=== PATIENT | female | born 1995 | race Caucasian/White ===

== ENCOUNTER 2017-02-01 16:14 | Emergency (ER) | payer OTHER ==
[~2017-02-01] VITALS: Wt 55.5 kg
[~2017-02-01 16:14] MED LIST: BEN25 PO; HC1C30 TOP; HYDR-842 PO; IBUP400T22 PO; OSLT75C PO; PRED20TA PO
[2017-02-01] MEDS ORDERED: IBUPROFEN 600 MG TAB PO ONE (17:30)
--- NOTE | 2017-02-01 17:50 | ERD ---
ER Documentation Chief Complaint Chief Complaint cough w cwp from coughing HPI 21-year-old female presents with anterior chest pain for the past 2 weeks associated with coughing. The patient describes pain as achy, localized, worse when she coughs or takes a deep breath in or out. She has not had any fevers or chills, shortness breath, hemoptysis. She denies taking exogenous steroids, denies leg pain or swelling, history of DVT or PE. ROS All systems reviewed and are negative except as per history of present illness. Medications Home Meds Active Scripts Mometasone Furoate* (Nasonex*) 50 Mcg/[place] - 17 Gm [place].pump, 1 SPRAY NASAL BID, #1 BOTTLE IN EACH NOSTRIL Prov:HIGINIO SOTOMAYOR PA-C 02/01/17 Cetirizine Hcl* (Cetirizine Hcl*) 10 Mg Tablet, 10 MG PO DAILY, #30 TAB Prov:HIGINIO SOTOMAYOR PA-C 02/01/17 Ibuprofen* (Motrin*) 600 Mg Tab, 600 MG PO Q6, #30 TAB Prov:HIGINIO SOTOMAYOR PA-C 02/01/17 Hydrocortisone* Topical (Hydrocortisone* Topical) 1%-28.35 Gm Cream..g., 1 APPLIC TOP Q6 Y for ITCHING, #1 TUB Prov:ANNABELLE HAMILTON PA-C 11/30/15 Diphenhydramine Hcl* (Benadryl*) 25 Mg Cap, 25 MG PO Q6, #30 CAP Prov:ANNABELLE HAMILTON PA-C 11/30/15 Ibuprofen* (Motrin*) 400 Mg Tab, 400 MG PO Q6, #30 TAB Prov:ZOYA HARRIS PA-C 08/20/15 Ibuprofen* (Motrin*) 400 Mg Tab, 400 MG PO Q6, #14 TAB Prov:HIGINIO SOTOMAYOR PA-C 05/06/15 Oseltamivir Phosphate* (Tamiflu*) 75 Mg Capsule, 75 MG PO BID for 5 Days, CAP Prov:HIGINIO SOTOMAYOR PA-C 05/06/15 Prednisone* (Prednisone*) 20 Mg Tab, 40 MG PO DAILY for 5 Days, TAB Prov:HIGINIO SOTOMAYOR PA-C 12/27/14 Hydroxyzine Hcl* (Atarax*) 25 Mg Tab, 25 MG PO Q6H Y for ITCHING, #14 TAB Prov:HIGINIO SOTOMAYOR PA-C 12/27/14 Reported Medications [None] No Conflict Check 02/26/10 Allergies Allergies: Coded Allergies: No Known Drug Allergies (Verified Allergy, Mild, 08/20/15) PMhx/Soc History of Surgery: No Anesthesia Reaction: No Hx Neurological Disorder: No Hx Respiratory Disorders: No Hx Cardiac Disorders: No Hx Psychiatric Problems: No Hx Miscellaneous Medical Probl: Yes (LUPUS) Hx Alcohol Use: No Hx Substance Use: No Hx Tobacco Use: No Physical Exam Vitals Vital Signs Date Time Temp Pulse Resp B/P Pulse Ox O2 Delivery O2 Flow Rate FiO2 02/01/17 16:31 98.1 80 20 105/56 97 Physical Exam General: Well-developed, well-nourished. The patient appears in no acute distress. HEENT: Head is normocephalic, atraumatic. No scleral icterus. Neck: Supple. Nontender. Lungs: Clear to auscultation. Normal air movement. Chest wall pain is reproducible with palpation over the proximal aspect of the sternum. Heart: Regular rate and rhythm. S1 and S2 are normal. No murmurs, gallops, or rubs. Abdomen: Nondistended. Extremities: No clubbing or cyanosis. Moving extremities x 4. No weakness. Neurologic: Alert and oriented 3. No focal deficits. Normal speech and gait. Skin: Normal turgor. No rash or lesions. Results 24 hrs Current Medications Medications (Trade) Dose Ordered Sig/Basilia Route PRN Reason Start Time Stop Time Status Last Admin Dose Admin Ibuprofen (Motrin) 600 mg ONCE ONCE PO 02/01/17 17:30 02/01/17 17:31 DC 12-lead EKG(interpreted by supervising physician): Dr. Noel Rate/Rhythm: Normal Sinus Rhythm, rate of 62 QRS, ST, T-waves: No changes consistent w/ acute ischemia, no intervals, no dysrhythmias, no ectopy Impression: No evidence of ischemia or arrhythmia DIAGNOSTIC IMAGING REPORT Patient: AKIL SHULTZ : 1995 Age: 21 Sex: F MR #: [id number] DOS: 02/01/17 1720 Ordering MD: HIGINIO SOTOMAYOR PA-C Location: [facility] Room/Bed: PROCEDURE: XR Chest. CLINICAL INDICATION: Chest pain, cough x 2 weeks TECHNIQUE: Single frontal view of the chest was obtained COMPARISON: Chest radiograph dated August 20, 2015. FINDINGS: The heart and mediastinum are within normal limits. The lungs are clear. There is no pleural effusion or pneumothorax. The osseous structures are unremarkable. IMPRESSION: 1. No acute cardiopulmonary disease. RPTAT:AAJJ Physician Veronique Date Time Electronically viewed and signed by Guy Noland Physician on 02/01/2017 18:30 QL/ CC: IHGINIO SOTOMAYOR PA-C Procedures/[facility] 21-year-old female presents with chest pain, cough, patient's chest x-ray, EKG are normal. She is PERC negative, I doubt acute pulmonary embolus. The pain is reproducible on examination, when I palpate over the sternum she reports pain that is most consistent with costochondritis. There is no evidence of pneumothorax, hemopneumothorax, widened mediastinum on the chest x-ray. EKG also shows normal sinus rhythm, the patient is stable for outpatient management to continue ibuprofen. Departure Diagnosis: Primary Impression: Cough Additional Impression: Chest wall pain HIGINIO SOTOMAYOR PA-C Feb 01, 2017 17:50
--- NOTE | 2017-02-01 18:31 | RADRPT ---
PROCEDURE: XR Chest. CLINICAL INDICATION: Chest pain, cough x 2 weeks TECHNIQUE: Single frontal view of the chest was obtained COMPARISON: Chest radiograph dated August 20, 2015. FINDINGS: The heart and mediastinum are within normal limits. The lungs are clear. There is no pleural effusion or pneumothorax. The osseous structures are unremarkable. IMPRESSION: 1. No acute cardiopulmonary disease. RPTAT:AAJJ Guy Noland Physician Date Time Electronically viewed and signed by Guy Noland Physician on 02/01/2017 18:30 QL/
[2017-02-01] MEDS ORDERED: NASO17 NASAL (18:59)
[2017-02-01] MEDS ORDERED: CETI-240 PO (18:59)
[2017-02-01] MEDS ORDERED: IBUP-1542 PO (18:59)
== END 2017-02-01 19:39 | disposition home or self-care (01) ==
LOC: FTE 16:14
DX: R05 Cough (principal); R07.89 Other chest pain
CPT/HCPCS: 71010; 93005; Z7502; Z7610

== ENCOUNTER 2017-02-16 13:20 | Emergency (ER) | payer OTHER ==
[~2017-02-16] VITALS: Ht 154.9 cm; Wt 56.1 kg
[~2017-02-16 13:20] MED LIST changes: +CETI-240 PO; +IBUP-1542 PO; +NASO17 NASAL
[2017-02-16 13:27] VITALS: Ht 154.9 cm; Wt 56.1 kg
[2017-02-16] MEDS ORDERED: morphine 4 MG/ML VIAL IV STA (15:52)
[2017-02-16] MEDS ORDERED: ONDANSETRON 4 MG INJ IV STA (15:52)
--- NOTE | 2017-02-16 15:58 | ERD ---
ER Documentation Chief Complaint Chief Complaint AP AND TOOK HER BP AND ITVWAS LOW AT HER JOB HPI This a 21-year-old female who presents the emergency department today complaining of diffuse abdominal pain that started 11 this morning. States she has not taken a medication for the pain. States she has a history of lupus and takes meloxicam and prednisone. States that she got her menstrual cycle today. States that this feels different than the normal cramps that she has. States she has had some nausea is intermittent. Denies any dysuria, fevers or chills. ROS All systems reviewed and are negative except as per history of present illness. Medications Home Meds Active Scripts Tramadol HCl (Tramadol HCl) 50 Mg Tablet, 50 MG PO Q4 Y for PAIN, #20 TAB Prov:ANNABELLE HAMILTON PA-C 02/16/17 Ondansetron Hcl* (Zofran*) 4 Mg Tablet, 4 MG PO Q6H for NAUSEA AND/OR VOMITING, #30 TAB Prov:ANNABELLE HAMILTON PA-C 02/16/17 Naproxen* (Naprosyn*) 500 Mg Tablet, 500 MG PO BID Y for PAIN AND/OR INFLAMMATION, #30 TAB Prov:ANNABELLE HAMILTON PA-C 02/16/17 Mometasone Furoate* (Nasonex*) 50 Mcg/[place] - 17 Gm [place].pump, 1 SPRAY NASAL BID, #1 BOTTLE IN EACH NOSTRIL Prov:HIGINIO SOTOMAYOR PA-C 02/01/17 Cetirizine Hcl* (Cetirizine Hcl*) 10 Mg Tablet, 10 MG PO DAILY, #30 TAB Prov:HIGINIO SOTOMAYOR PA-C 02/01/17 Ibuprofen* (Motrin*) 600 Mg Tab, 600 MG PO Q6, #30 TAB Prov:HIGINIO SOTOMAYOR PA-C 02/01/17 Hydrocortisone* Topical (Hydrocortisone* Topical) 1%-28.35 Gm Cream..g., 1 APPLIC TOP Q6 Y for ITCHING, #1 TUB Prov:ANNABELLE HAMILTON PA-C 11/30/15 Diphenhydramine Hcl* (Benadryl*) 25 Mg Cap, 25 MG PO Q6, #30 CAP Prov:ANNABELLE HAMILTON PA-C 11/30/15 Ibuprofen* (Motrin*) 400 Mg Tab, 400 MG PO Q6, #30 TAB Prov:ZOYA HARRIS PA-C 08/20/15 Ibuprofen* (Motrin*) 400 Mg Tab, 400 MG PO Q6, #14 TAB Prov:HIGINIO SOTOMAYOR PA-C 05/06/15 Oseltamivir Phosphate* (Tamiflu*) 75 Mg Capsule, 75 MG PO BID for 5 Days, CAP Prov:HIGINIO SOTOMAYOR PA-C 05/06/15 Prednisone* (Prednisone*) 20 Mg Tab, 40 MG PO DAILY for 5 Days, TAB Prov:HIGINIO SOTOMAYOR PA-C 12/27/14 Hydroxyzine Hcl* (Atarax*) 25 Mg Tab, 25 MG PO Q6H Y for ITCHING, #14 TAB Prov:HIGINIO SOTOMAYOR PA-C 12/27/14 Reported Medications [None] No Conflict Check 02/26/10 Allergies Allergies: Coded Allergies: No Known Drug Allergies (Verified Allergy, Mild, 08/20/15) PMhx/Soc History of Surgery: No Anesthesia Reaction: No Hx Neurological Disorder: No Hx Respiratory Disorders: No Hx Cardiac Disorders: No Hx Psychiatric Problems: No Hx Miscellaneous Medical Probl: Yes (LUPUS) Hx Alcohol Use: No Hx Substance Use: No Hx Tobacco Use: No Physical Exam Vitals Vital Signs Date Time Temp Pulse Resp B/P Pulse Ox O2 Delivery O2 Flow Rate FiO2 02/16/17 13:27 98.5 73 18 106/61 99 Physical Exam Const: NAD Head: Atraumatic Eyes: Normal Conjunctiva ENT: Normal External Ears, Nose and Mouth. Neck: Full range of motion..~ No meningismus. Resp: Clear to auscultation bilaterally Cardio: Regular rate and rhythm, no murmurs Abd: Soft, diffuse abdominal tenderness, non distended. Normal bowel sounds Skin: No petechiae or rashes Back: No midline or flank tenderness Ext: No cyanosis, or edema Neur: Awake and alert Psych: Normal Mood and Affect Result Diagram: 02/16/17 1623 02/16/17 1623 Results 24 hrs Laboratory Tests Test 02/16/17 16:23 White Blood Count 15.010^3/ul Red Blood Count 4.2410^6/ul Hemoglobin 13.5g/dl Hematocrit 38.5% Mean Corpuscular Volume 90.8fl Mean Corpuscular Hemoglobin 31.8pg Mean Corpuscular Hemoglobin Concent 35.1g/dl Red Cell Distribution Width 11.8% Platelet Count 84733^3/UL Mean Platelet Volume 9.2fl Neutrophils % 88.0% Lymphocytes % 7.7% Monocytes % 3.6% Eosinophils % 0.1% Basophils % 0.3% Nucleated Red Blood Cells % 0.0/100WBC Neutrophils # 13.210^3/ul Lymphocytes # 1.210^3/ul Monocytes # 0.510^3/ul Eosinophils # 0.010^3/ul Basophils # 0.110^3/ul Nucleated Red Blood Cells # 0.010^3/ul Urine Color YELLOW Urine Clarity CLEAR Urine pH 7.0 Urine Specific [place] 1.021 Urine Ketones TRACEmg/dL Urine Nitrite NEGATIVEmg/dL Urine Bilirubin NEGATIVEmg/dL Urine Urobilinogen 1+mg/dL Urine Leukocyte Esterase NEGATIVELeu/ul Urine Microscopic RBC 60/HPF Urine Microscopic WBC 1/HPF Urine Mucus FEW/HPF Urine Hemoglobin 2+mg/dL Urine Glucose NEGATIVEmg/dL Urine Total Protein 1+mg/dl Sodium Level 142mmol/L Potassium Level 3.6mmol/L Chloride Level 104mmol/L Carbon Dioxide Level 24mmol/L Anion Gap 18 Blood Urea Nitrogen 12mg/dl Creatinine 0.59mg/dl Glucose Level 108mg/dl Calcium Level 9.6mg/dl Total Bilirubin 0.3mg/dl Direct Bilirubin 0.00mg/dl Indirect Bilirubin 0.3mg/dl Aspartate Amino Transf (AST/SGOT) 23IU/L Alanine Aminotransferase (ALT/SGPT) 30IU/L Alkaline Phosphatase 81IU/L Total Protein 8.3g/dl Albumin 4.7g/dl Globulin 3.60g/dl Albumin/Globulin Ratio 1.30 Lipase 58U/L Current Medications Medications (Trade) Dose Ordered Sig/Basilia Route PRN Reason Start Time Stop Time Status Last Admin Dose Admin Morphine Sulfate (morphine) 4 mg ONCE STAT IV 02/16/17 15:52 02/16/17 15:54 DC 02/16/17 16:31 Ondansetron HCl (Zofran Inj) 4 mg ONCE STAT IV 02/16/17 15:52 02/16/17 15:54 DC 02/16/17 16:31 DIAGNOSTIC IMAGING REPORT Patient: AKIL SHULTZ : 1995 Age: 21 Sex: F MR #: [id number] DOS: 02/16/17 1552 Ordering MD: ANNABELLE HAMILTON PA-C Location: [facility] Room/Bed: PROCEDURE: CT Abdomen and Pelvis without contrast. CLINICAL INDICATION: Abdominal pain TECHNIQUE: CT scan of the abdomen and pelvis was performed on a multidetector high-resolution CT scanner without intravenous contrast. Coronal and sagittal reformatted images were obtained from the axial source images. Images were reviewed on a high-resolution PACS workstation. The total exam CTDI equals 5mGy and the total exam DLP equals 230mGy-cm. One or more of the following dose reduction techniques were used: Automated exposure control, Adjustment of the mA and/or kV according to patient size, and/or use of iterative reconstruction technique. DICOM images are available. COMPARISON: None. FINDINGS: Evaluation of the solid organs is limited given the lack of intravenous contrast administration. The lung bases are clear. The liver, pancreas, spleen, and adrenals are grossly unremarkable. No focal pericholecystic inflammatory changes. No hydronephrosis. Punctate 1 mm right lower renal pole hyperdensities (series 3 image 57; se 601 image 44). No bowel obstruction. Normal-caliber appendix. No significant retroperitoneal lymphadenopathy, ascites or evidence of pneumoperitoneum. IMPRESSION: No evidence of bowel obstruction or appendicitis. Punctate 1 mm right lower renal pole hyperdensities is suggestive of renal medullary nephrocalcinosis or tiny renal stones. RPTAT: AA .Guido Cha MD, MD Date Time Electronically viewed and signed by .Guido Cha MD, MD on 02/16/2017 17:20 .T/ CC: ANNABELLE HAMILTON PA-C DIAGNOSTIC IMAGING REPORT Patient: AKIL SHULTZ : 1995 Age: 21 Sex: F MR #: [id number] DOS: 02/16/17 0000 Ordering MD: ANNABELLE HAMILTON PA-C Location: [facility] Room/Bed: PROCEDURE: US Non-OB Pelvis. CLINICAL INDICATION: Pelvic pain. TECHNIQUE: Multiple sonographic images of the pelvis were obtained utilizing a transabdominal technique. The images were reviewed on a PACS workstation. COMPARISON: None. FINDINGS: The uterus is visualized and measures 7.4 x 3.3 x 4.4 cm. The endometrial echo complex is normal and measures 6 mm. The right ovary measures 3.4 x 1.4 x 1.8 cm. The left ovary measures 2.7 x 1.3 x 1.7 cm. Blood flow is demonstrated to both ovaries. No adnexal masses are noted. There is no evidence of free fluid. IMPRESSION: 1. Unremarkable pelvic ultrasound. RPTAT: HTAR .Joe Garcia MD, Date Time Electronically viewed and signed by .Joe Garcia MD, on 02/16/2017 20:11 .R/ CC: ANANBELLE HAMILTON PA-C Procedures/MDM This is a 21-year-old female who presents emergency department today complaining of diffuse abdominal pain that started 11 this morning. 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 On physical exam patient has diffuse abdominal pain given her history of lupus I did obtain laboratory work as well as imaging Laboratory workup shows an elevated white blood cell count of 15. She is not anemic. Platelets are within normal limits. Electrolytes are within normal limits. Glucose is within normal limits. Liver enzymes are within normal limits. Lipase is within normal limits. UA shows negative leukocyte esterase and negative nitrites. There are no micro scopic white blood cell their 60 microscopic red blood cells. Patient indicates she just started her menstrual cycle today. Urine test is negative CT abdomen pelvis non contrast no evidence of bowel obstruction or appendicitis. There is a punctate 1 mm right lower renal pole hyperdensities suggestive of renal medullary nephrocalcinosis or tiny renal stones. Patient is afebrile and otherwise well-appearing. I have low suspicion for pyelonephritis. Patient was given morphine, Zofran here in the emergency department improved that she was still complaining of some lower pelvic pain and therefore did a dedicated ultrasound. Ultrasound is unremarkable. There are no adnexal masses. There is no free fluid. There is blood flow to both ovaries. Symptoms at this time is consistent with abdominal pain of uncertain etiology however may be related to 1 punctate kidney stone versus patient's normal menstrual cycle that she started today and menstrual cramping. Low suspicion for acute surgical abdomen. His white blood cell count may be reactive in nature. She is afebrile and otherwise well-appearing. She has no CVA tenderness. She will be given a prescription for short course of Tramadol, Naprosyn, zofran for home. At this time the patient is stable for discharge and outpatient management. Patient should follow up with their PCP in the next 1-2 days. They may return to the emergency department sooner for any persistent or worsening of symptoms. Patient understood and agreed with the plan. Departure Diagnosis: Primary Impression: Abdominal pain Abdominal location: generalized Qualified Code: R10.84 - Generalized abdominal pain Condition: Fair ANNABELLE HAMILTON PA-C Feb 16, 2017 15:58
[2017-02-16 16:35] LABS: BASOPHIL # 0.1 10^3/ul (0.0-0.1); BASOPHILS % 0.3 % (0.0-2.0); EOSINOPHILS % 0.1 % (0.0-7.0); HEMATOCRIT 38.5 % (37.0-47.0); HEMOGLOBIN 13.5 g/dl (12.0-16.0); LYMPHOCYTES # 1.2 10^3/ul (0.8-2.9); LYMPHOCYTES % 7.7 % (18.0-55.0); MEAN CORPUSCULAR HEMOGLOBIN 31.8 pg (29.0-33.0); MEAN CORPUSCULAR HGB CONC 35.1 g/dl (32.0-37.0); MEAN CORPUSCULAR VOLUME 90.8 fl (72.0-104.0); MEAN PLATELET VOLUME 9.2 fl (7.4-10.4); MONOCYTE # 0.5 10^3/ul (0.3-0.9); MONOCYTES % 3.6 % (0.0-13.0); NEUTROPHIL # 13.2 10^3/ul (1.6-7.5); PLATELET COUNT 311 10^3/UL (140-415); RED BLOOD COUNT 4.24 10^6/ul (4.20-5.40); RED CELL DISTRIBUTION WIDTH 11.8 % (11.5-14.5)
[2017-02-16 16:39] LABS: ADD UMIC YES; UR ASCORBIC ACID NEGATIVE (NEGATIVE); UR BILIRUBIN (Dip) NEGATIVE (NEGATIVE); UR BLOOD (Dip) 2+ mg/dL (NEGATIVE); UR CLARITY CLEAR (CLEAR); UR COLOR YELLOW (YELLOW); UR GLUCOSE (Dip) NEGATIVE (NEGATIVE); UR KETONES (Dip) TRACE mg/dL (NEGATIVE); UR LEUKOCYTE ESTERASE (Dip) NEGATIVE Leu/ul (NEGATIVE); UR MUCUS FEW /HPF (NONE SEEN); UR NITRITE (Dip) NEGATIVE (NEGATIVE); UR RBC 60 /HPF (0-5); UR SPECIFIC GRAVITY (Dip) 1.021 (1.003-1.030); UR TOTAL PROTEIN (Dip) 1+ mg/dl (NEGATIVE); UR UROBILINOGEN (Dip) 1+ mg/dL (NEGATIVE)
[2017-02-16 17:04] LABS: ALBUMIN 4.7 g/dl (3.3-4.9); ALBUMIN/GLOBULIN RATIO 1.3; BILIRUBIN,INDIRECT 0.3 mg/dl (0-1.1); BILIRUBIN,TOTAL 0.3 mg/dl (0.2-1.3); CALCIUM 9.6 mg/dl (8.4-10.2); CREATININE 0.59 mg/dl (0.44-1.00); POTASSIUM 3.6 mmol/L (3.5-5.1); TOTAL PROTEIN 8.3 g/dl (6.1-8.1)
--- NOTE | 2017-02-16 17:21 | RADRPT ---
PROCEDURE: CT Abdomen and Pelvis without contrast. CLINICAL INDICATION: Abdominal pain TECHNIQUE: CT scan of the abdomen and pelvis was performed on a multidetector high-resolution CT s [place] without intravenous contrast. Coronal and sagittal reformatted images were obtained from the axial source images. Images were reviewed on a high-resolution PACS workstation. The total exam CTD I equals 5mGy and the total exam DLP equals 230mGy-cm. One or more of the following dose reduction t echniques were used: Automated exposure control, Adjustment of the mA and/or kV according to patient size, and/or use of iterative reconstruction technique. DICOM images are available. COMPARISON: None. FINDINGS: Evaluation of the solid organs is limited given the lack of intravenous contrast administration. The lung bases are clear. The liver, pancreas, spleen, and adrenals are grossly unremarkable. No focal pericholecystic inflammatory changes. No hydronephrosis. Punctate 1 mm right lower renal pole hyperdensities (series 3 image 57; se 601 i mage 44). No bowel obstruction. Normal-caliber appendix. No significant retroperitoneal lymphadenopathy, ascites or evidence of pneumoperitoneum. IMPRESSION: No evidence of bowel obstruction or appendicitis. Punctate 1 mm right lower renal pole hyperdensities is suggestive of renal medullary nephrocalcinosi s or tiny renal stones. RPTAT: AA .Guido Cha MD, MD Date Time Electronically viewed and signed by .Guido Cha MD, MD on 02/16/2017 17:20 .T/
--- NOTE | 2017-02-16 20:12 | RADRPT ---
PROCEDURE: US Non-OB Pelvis. CLINICAL INDICATION: Pelvic pain. TECHNIQUE: Multiple sonographic images of the pelvis were obtained utilizing a transabdominal tech nique. The images were reviewed on a PACS workstation. COMPARISON: None. FINDINGS: The uterus is visualized and measures 7.4 x 3.3 x 4.4 cm. The endometrial echo complex is normal and measures 6 mm. The right ovary measures 3.4 x 1.4 x 1.8 cm. The left ovary measures 2.7 x 1.3 x 1.7 cm. Blood flow is demonstrated to both ovaries. No adnexal masses are noted. There is no evidence of free fluid. IMPRESSION: 1. Unremarkable pelvic ultrasound. RPTAT: HTAR .Joe Garcia MD, Date Time Electronically viewed and signed by .Joe Garcia MD, MD on 02/16/2017 20:11 .R/
[2017-02-16] MEDS ORDERED: TRAM50TA2 PO (20:29)
[2017-02-16] MEDS ORDERED: ONDA4TAB8 PO (20:29)
[2017-02-16] MEDS ORDERED: NAPR-260 PO (20:29)
[2017-02-16 21:00] VITALS: BP 93/53; PULSE 73; RESP 14; TEMP 98.3
== END 2017-02-16 21:14 | disposition home or self-care (01) ==
LOC: FTE 13:20
DX: R10.84 Generalized abdominal pain (principal); R10.2 Pelvic and perineal pain
CPT/HCPCS: 36415; 74176; 76856; 80053; 81001; 83690; 85025; 96374; 96375; J2270; J2405; Z7502

== ENCOUNTER 2017-03-17 12:22 | Emergency (ER) | payer OTHER ==
[~2017-03-17] VITALS: Ht 152.4 cm; Wt 60.0 kg
[~2017-03-17 12:22] MED LIST changes: +NAPR-260 PO; +ONDA4TAB8 PO; +TRAM50TA2 PO
[2017-03-17 12:25] VITALS: Ht 152.4 cm; Wt 60.0 kg
[2017-03-17] MEDS ORDERED: ONDANSETRON 4 MG INJ IV STA (15:43)
[2017-03-17] MEDS ORDERED: KETOROLAC 30 MG INJ IV STA (15:43)
[2017-03-17 16:31] LABS: BASOPHIL # 0.1 10^3/ul (0.0-0.1); BASOPHILS % 0.5 % (0.0-2.0); EOSINOPHILS % 0.1 % (0.0-7.0); HEMATOCRIT 37.2 % (37.0-47.0); HEMOGLOBIN 13.2 g/dl (12.0-16.0); LYMPHOCYTES # 0.8 10^3/ul (0.8-2.9); LYMPHOCYTES % 6.4 % (18.0-55.0); MEAN CORPUSCULAR HEMOGLOBIN 32.4 pg (29.0-33.0); MEAN CORPUSCULAR HGB CONC 35.5 g/dl (32.0-37.0); MEAN CORPUSCULAR VOLUME 91.2 fl (72.0-104.0); MEAN PLATELET VOLUME 9.7 fl (7.4-10.4); MONOCYTE # 0.4 10^3/ul (0.3-0.9); MONOCYTES % 3.2 % (0.0-13.0); NEUTROPHIL # 10.8 10^3/ul (1.6-7.5); NEUTROPHILS % 89.4 % (30.0-74.0); PLATELET COUNT 269 10^3/UL (140-415); RED BLOOD COUNT 4.08 10^6/ul (4.20-5.40); WHITE BLOOD COUNT 12.1 10^3/ul (4.8-10.8)
[2017-03-17 16:51] LABS: ALBUMIN 4.9 g/dl (3.3-4.9); ALBUMIN/GLOBULIN RATIO 1.53; BILIRUBIN,INDIRECT 0.4 mg/dl (0-1.1); BILIRUBIN,TOTAL 0.4 mg/dl (0.2-1.3); CALCIUM 9.7 mg/dl (8.4-10.2); CREATININE 0.54 mg/dl (0.44-1.00); POTASSIUM 3.8 mmol/L (3.5-5.1); TOTAL PROTEIN 8.1 g/dl (6.1-8.1)
--- NOTE | 2017-03-17 17:11 | RADRPT ---
PROCEDURE: Right upper quadrant ultrasound CLINICAL INDICATION: Abdominal pain TECHNIQUE: Multiple real-time images were acquired of the patient's abdomen and right retroperiton eum utilizing a high resolution transducer. COMPARISON: CT dated 02/16/2017 FINDINGS: The liver is normal in echogenicity and measures 14.2 cm. No focal hepatic masses are seen. The ga llbladder is physiologically distended. There is no evidence of gallstones, gallbladder wall thicke mariano, or pericholecystic fluid. The intra and extrahepatic bile ducts are normal in caliber. The c ommon bile duct measures 3.2 mm. Pancreas is not visualized due to overlying bowel gas Survey views of the right kidney demonstrate no evidence of hydronephrosis or renal calculi. The ri ght kidney measures 9.2 cm. IMPRESSION: Unremarkable right upper quadrant ultrasound. No evidence of cholelithiasis or acute cholecystitis. . Pancreas not visualized RPTAT: HH .Garry Lopez MD, Date Time Electronically viewed and signed by .Garry Lopez MD, MD on 03/17/2017 17:10 .W/
[2017-03-17 17:18] LABS: ADD UMIC YES; UR ASCORBIC ACID NEGATIVE (NEGATIVE); UR BILIRUBIN (Dip) NEGATIVE (NEGATIVE); UR BLOOD (Dip) 3+ mg/dL (NEGATIVE); UR CLARITY SLIGHTLY CLOUDY (CLEAR); UR COLOR YELLOW (YELLOW); UR GLUCOSE (Dip) NEGATIVE (NEGATIVE); UR KETONES (Dip) 1+ mg/dL (NEGATIVE); UR LEUKOCYTE ESTERASE (Dip) NEGATIVE Leu/ul (NEGATIVE); UR MUCUS MODERATE /HPF (NONE SEEN); UR NITRITE (Dip) NEGATIVE (NEGATIVE); UR RBC > 182 /HPF (0-5); UR SPECIFIC GRAVITY (Dip) 1.025 (1.003-1.030); UR TOTAL PROTEIN (Dip) 1+ mg/dl (NEGATIVE); UR UROBILINOGEN (Dip) 1+ mg/dL (NEGATIVE)
[2017-03-17] MEDS ORDERED: IBUP-1542 PO (17:41)
[2017-03-17] MEDS ORDERED: ONDA4TAB14 PO (17:41)
[2017-03-17 17:56] VITALS: BP 92/52; PULSE 74; RESP 18; TEMP 98.1
--- NOTE | 2017-03-17 18:41 | ERD ---
ER Documentation Chief Complaint Chief Complaint PELVIC PAIN , STARTED MENSES YESTERDAY HPI Patient is a 21-year-old female with a history of lupus who presents to the ED for concerns of diffuse abdominal pain 1 day. Patient states that her pain is worse than the right upper quadrant. Patient denies any fevers, chills. Patient does admit to nausea and one episode of nonbloody nonbilious vomiting. Patient denies any diarrhea, dysuria, frequency, urgency or hematuria. Patient is taking her lupus medications daily. Patient states she started her menstrual period yesterday and has severe abdominal cramps. She was seen here 1 month ago for similar symptoms when she had start her period last month. Patient denies any chest pain, shortness of breath, left upper extremity pain or diaphoresis. ROS All systems reviewed and are negative except as per history of present illness. Medications Home Meds Active Scripts Ondansetron (Ondansetron Odt) 4 Mg Tab.rapdis, 4 MG PO Q6H Y for NAUSEA AND/OR VOMITING, #10 TAB Prov:JW BARNETT PA-C 03/17/17 Ibuprofen* (Motrin*) 600 Mg Tab, 600 MG PO Q6, #15 TAB Prov:JW BARNETT PA-C 03/17/17 Tramadol HCl (Tramadol HCl) 50 Mg Tablet, 50 MG PO Q4 Y for PAIN, #20 TAB Prov:ANNABELLE HAMILTON PA-C 02/16/17 Ondansetron Hcl* (Zofran*) 4 Mg Tablet, 4 MG PO Q6H for NAUSEA AND/OR VOMITING, #30 TAB Prov:ANNABELLE HAMILTON PA-C 02/16/17 Naproxen* (Naprosyn*) 500 Mg Tablet, 500 MG PO BID Y for PAIN AND/OR INFLAMMATION, #30 TAB Prov:ANNABELLE HAMILTON PA-C 02/16/17 Mometasone Furoate* (Nasonex*) 50 Mcg/[place] - 17 Gm [place].pump, 1 SPRAY NASAL BID, #1 BOTTLE IN EACH NOSTRIL Prov:HIGINIO SOTOMAYOR PA-C 02/01/17 Cetirizine Hcl* (Cetirizine Hcl*) 10 Mg Tablet, 10 MG PO DAILY, #30 TAB Prov:HIGINIO SOTOMAYOR PA-C 02/01/17 Ibuprofen* (Motrin*) 600 Mg Tab, 600 MG PO Q6, #30 TAB Prov:HIGINIO SOTOMAYOR PA-C 02/01/17 Hydrocortisone* Topical (Hydrocortisone* Topical) 1%-28.35 Gm Cream..g., 1 APPLIC TOP Q6 Y for ITCHING, #1 TUB Prov:ANNABELLE HAMILTON PA-C 11/30/15 Diphenhydramine Hcl* (Benadryl*) 25 Mg Cap, 25 MG PO Q6, #30 CAP Prov:ANNABELLE HAMILTON PA-C 11/30/15 Ibuprofen* (Motrin*) 400 Mg Tab, 400 MG PO Q6, #30 TAB Prov:ZOYA HARRIS PA-C 08/20/15 Ibuprofen* (Motrin*) 400 Mg Tab, 400 MG PO Q6, #14 TAB Prov:HIGINIO SOTOMAYOR PA-C 05/06/15 Oseltamivir Phosphate* (Tamiflu*) 75 Mg Capsule, 75 MG PO BID for 5 Days, CAP Prov:HIGINIO SOTOMAYOR PA-C 05/06/15 Prednisone* (Prednisone*) 20 Mg Tab, 40 MG PO DAILY for 5 Days, TAB Prov:HIGINIO SOTOMAYOR PA-C 12/27/14 Hydroxyzine Hcl* (Atarax*) 25 Mg Tab, 25 MG PO Q6H Y for ITCHING, #14 TAB Prov:HIGINIO SOTOMAYOR PA-C 12/27/14 Reported Medications [None] No Conflict Check 02/26/10 Allergies Allergies: Coded Allergies: No Known Drug Allergies (Verified Allergy, Mild, 03/17/17) PMhx/Soc Medical and Surgical Hx: pt denies Surgical Hx History of Surgery: No Anesthesia Reaction: No Hx Neurological Disorder: No Hx Respiratory Disorders: No Hx Cardiac Disorders: No Hx Psychiatric Problems: No Hx Miscellaneous Medical Probl: Yes (LUPUS) Hx Alcohol Use: No Hx Substance Use: No Hx Tobacco Use: No Smoking Status: Never smoker Physical Exam Vitals Vital Signs Date Time Temp Pulse Resp B/P Pulse Ox O2 Delivery O2 Flow Rate FiO2 03/17/17 17:56 98.1 74 18 92/52 96 Room Air 03/17/17 12:25 98.6 73 18 100/58 99 Physical Exam GENERAL: Well-developed, well-nourished female. Appears in no acute distress. HEAD: Normocephalic, atraumatic. EYES: Pupils are equally reactive bilaterally. EOMs grossly intact. No conjunctival erythema. ENT: Moist mucous membranes. No uvula deviation. No kissing tonsils. NECK: Supple. No meningismus. Normal range of motion of the neck. LUNG: Clear to auscultation bilaterally. No rhonchi, wheezing, rales or coarse breath sounds. HEART: Regular rate and rhythm. No murmurs, rubs or gallops. ABDOMEN: Soft, and nondistended. Diffuse tenderness to palpation in all 4 quadrants. Patient is more tender in her right upper quadrant. Positive bowel sounds in all four quadrants. No rebound tenderness, no guarding. (-) McBurney' s point tenderness. No CVA tenderness. EXTREMITIES: Equal pulses bilaterally. No peripheral clubbing, cyanosis or edema. No unilateral leg swelling. NEUROLOGIC: Alert and oriented. Moving all four extremities without any difficulty. Normal speech. Steady gait. SKIN: Normal color. Warm and dry. No rashes or lesions. Result Diagram: 03/17/17 1610 03/17/17 1610 Results 24 hrs Laboratory Tests Test 03/17/17 16:10 03/17/17 16:45 White Blood Count 12.110^3/ul Red Blood Count 4.0810^6/ul Hemoglobin 13.2g/dl Hematocrit 37.2% Mean Corpuscular Volume 91.2fl Mean Corpuscular Hemoglobin 32.4pg Mean Corpuscular Hemoglobin Concent 35.5g/dl Red Cell Distribution Width 12.0% Platelet Count 20270^3/UL Mean Platelet Volume 9.7fl Neutrophils % 89.4% Lymphocytes % 6.4% Monocytes % 3.2% Eosinophils % 0.1% Basophils % 0.5% Nucleated Red Blood Cells % 0.0/100WBC Neutrophils # 10.810^3/ul Lymphocytes # 0.810^3/ul Monocytes # 0.410^3/ul Eosinophils # 0.010^3/ul Basophils # 0.110^3/ul Nucleated Red Blood Cells # 0.010^3/ul Sodium Level 144mmol/L Potassium Level 3.8mmol/L Chloride Level 107mmol/L Carbon Dioxide Level 22mmol/L Anion Gap 19 Blood Urea Nitrogen 12mg/dl Creatinine 0.54mg/dl Glucose Level 99mg/dl Calcium Level 9.7mg/dl Total Bilirubin 0.4mg/dl Direct Bilirubin 0.00mg/dl Indirect Bilirubin 0.4mg/dl Aspartate Amino Transf (AST/SGOT) 20IU/L Alanine Aminotransferase (ALT/SGPT) 30IU/L Alkaline Phosphatase 77IU/L Total Protein 8.1g/dl Albumin 4.9g/dl Globulin 3.20g/dl Albumin/Globulin Ratio 1.53 Lipase 77U/L Urine Color YELLOW Urine Clarity SLIGHTLY CLOUDY Urine pH 5.0 Urine Specific [place] 1.025 Urine Ketones 1+mg/dL Urine Nitrite NEGATIVEmg/dL Urine Bilirubin NEGATIVEmg/dL Urine Urobilinogen 1+mg/dL Urine Leukocyte Esterase NEGATIVELeu/ul Urine Microscopic RBC > 182/HPF Urine Microscopic WBC 2/HPF Urine Mucus MODERATE/HPF Urine Hemoglobin 3+mg/dL Urine Glucose NEGATIVEmg/dL Urine Total Protein 1+mg/dl Current Medications Medications (Trade) Dose Ordered Sig/Basilia Route PRN Reason Start Time Stop Time Status Last Admin Dose Admin Ondansetron HCl (Zofran Inj) 4 mg ONCE STAT IV 03/17/17 15:43 03/17/17 15:45 DC 03/17/17 16:19 Ketorolac Tromethamine (Toradol) 30 mg ONCE STAT IV 03/17/17 15:43 03/17/17 15:45 DC 03/17/17 16:40 Procedures/MDM ED COURSE: The patient was stable throughout ED course. I kept the patient and/or family informed of laboratory and diagnostic imaging results throughout the ED course. DIAGNOSTIC IMAGING: Read by radiologist. Patient: AKIL SHULTZ : 1995 Age: 21 Sex: F [id number] DOS: 03/17/17 1647 Ordering MD: JW BARNETT PA-C Location: [facility] Room/Bed: PROCEDURE: Right upper quadrant ultrasound CLINICAL INDICATION: Abdominal pain TECHNIQUE: Multiple real-time images were acquired of the patient's abdomen and right retroperitoneum utilizing a high resolution transducer. COMPARISON: CT dated 02/16/2017 FINDINGS: The liver is normal in echogenicity and measures 14.2 cm. No focal hepatic masses are seen. The gallbladder is physiologically distended. There is no evidence of gallstones, gallbladder wall thickening, or pericholecystic fluid. The intra and extrahepatic bile ducts are normal in caliber. The common bile duct measures 3.2 mm. Pancreas is not visualized due to overlying bowel gas Survey views of the right kidney demonstrate no evidence of hydronephrosis or renal calculi. The right kidney measures 9.2 cm. IMPRESSION: Unremarkable right upper quadrant ultrasound. No evidence of cholelithiasis or acute cholecystitis.. Pancreas not visualized RPTAT: HH .Garry Lopez MD, Date Time Electronically viewed and signed by .Garry Lopez MD, on 03/17/2017 17:10 .W/ CC: JW BARNETT PA-C MEDICATIONS GIVEN: Toradol, Zofran Patient tolerated medication well with no adverse reactions. MEDICAL DECISION MAKING: This is a 21-year-old female presents with diffuse abdominal pain 1 day. Patient is currently on her menstrual period. Patient had similar symptoms of diffuse abdominal pain when she had her menstrual period last month. Vital signs were reviewed. Patient is afebrile. Patient did have diffuse tenderness throughout her abdomen. Patient had no peritoneal signs. Patient had no guarding or rebound. Low suspicion for an acute abdomen at this time. CBC showed no evidence of severe anemia. Patient's WBC count was noted to be 12.1. CMP showed no evidence of electrolyte abnormalities, severe acidosis, alkalosis, renal failure, or liver disease. Lipase showed no evidence of acute pancreatitis. UA showed no evidence of acute infection. Blood was noted in the patient's urine however this is likely due to the patient currently being on her menstrual period. Urine test was negative. Gallbladder ultrasound was unremarkable. Upon reexamination, patient did report improvement in pain. Patient was noted to be sleeping on the gurney with no signs of distress. I discussed the patient's blood work findings with her. I examined to the patient that she does have a slight elevation in her white count however at this time I do not feel that repeat CT scan of the abdomen and pelvis is required. Patient was seen here approximately 1 month ago and at that time she had a CT abdomen pelvis completed. Patient had no acute abdominal findings. Patient was also noted to have a white count at that time. I explained to the patient that she should return in 8-10 hours for repeat abdominal exam as I am unable to definitively rule out appendicitis. Patient understood and agreed with this plan. At this time, patient's presentation is most consistent with diffuse abdominal pain and current menstruation. Low suspicion for ACS, DKA, bowel obstruction, bowel perforation, cholecystitis, choledocholithiasis, pancreatitis, diverticulitis, UTI, pyelonephritis, nephrolithiasis. PRESCRIPTIONS: Ibuprofen, Zofran DISCHARGE: At this time, patient is stable for discharge and outpatient management. She was given a copy of all imaging studies and blood work obtained today. I have instructed the patient to follow-up with his/her primary care physician in 1-2 days. I have instructed the patient to promptly return to the ER at any time for any new or worsening symptoms including increased pain, nausea, vomiting, diarrhea, fever, weakness or LOC. The patient and/or family expressed understanding of and agreement with this plan. All questions were answered. Home care instructions were provided. Disclaimer: Inadvertent spelling and grammatical errors are likely due to EHR/ dictation software use and do not reflect on the overall quality of patient care. Also, please note that the electronic time recorded on this note does not necessarily reflect the actual time of the patient encounter. Departure Diagnosis: Primary Impression: Abdominal pain Abdominal location: generalized Qualified Code: R10.84 - Generalized abdominal pain Condition: Stable Patient Instructions: Abdominal Pain Referrals: [facility] (PCP) Additional Instructions: Abdominal pain recheck advised in 8-10 hours. Return sooner for any new or worsening symptoms. Call your primary care doctor TOMORROW for an appointment during the next 1-2 days.See the doctor sooner or return here if your condition worsens before your appointment time. JW BARNETT PA-C Mar 17, 2017 18:41
== END 2017-03-17 18:01 | disposition home or self-care (01) ==
LOC: FTE 12:22
DX: R10.84 Generalized abdominal pain (principal)
CPT/HCPCS: 36415; 76705; 80053; 81001; 83690; 85025; 96374; 96375; J1885; J2405; Z7502